=== PATIENT | male | born 1965 | race African-American/Black ===

== ENCOUNTER 2018-11-21 13:01 | Emergency (ER) | payer OTHER ==
[~2018-11-21] VITALS: Ht 180.3 cm; Wt 68.0 kg
[2018-11-21 13:08] VITALS: BP 107/71
--- NOTE | 2018-11-21 13:09 | NUR ---
BIBA C/O L KNEE PAIN 03/16 X1 DAY AND GENERALIZED WEAKNESS STARTING TODAY. PT STATES HE FELT LIKE HE "GOT THE CHILLS AND FELT LIGHTHEADED" WHILE AT THE BUS STOP THIS MORNING. PT REPORTS 3 EPISODES OF VOMITING THIS MORNING, CONSISTENT WITH THE FOOD HE ATE TODAY. FSBS 159 ON ARRIVAL. SKIN IS WARM/DRY; AAOX4 WITH UNSTEADY GAIT; LUNGS CLEAR BL; HR EVEN AND REGULAR; PT DENIES ANY FEVER, CP, SOB, OR COUGH AT THIS TIME; VSS; PATIENT POSITIONED FOR COMFORT; HOB ELEVATED; BEDRAILS UP X1; BED DOWN. ER MD MADE AWARE OF PT STATUS.
--- NOTE | 2018-11-21 13:13 | NUR ---
PROVIDED PT W URINAL/CUP FOR URINE SPECIMIN
--- NOTE | 2018-11-21 13:19 | NUR ---
ERMD AT BEDSIDE
[2018-11-21] MEDS ORDERED: KETOROLAC 60 MG/2 ML VIAL IM ONE (13:20)
[2018-11-21 13:56] VITALS: BP 113/79
--- NOTE | 2018-11-21 13:56 | NUR ---
Patient discharged with v/s stable. Written and verbal after care instructions given and explained. Patient alert, oriented and verbalized understanding of instructions. Ambulatory with steady gait. All questions addressed prior to discharge. ID band removed. Patient advised to follow up with PMD. Rx of Motrin, Zofran given. Patient educated on indication of medication including possible reaction and side effects. Opportunity to ask questions provided and answered.
== END 2018-11-21 13:56 | disposition home or self-care (01) ==
LOC: MED 13:01
DX: R11.2 Nausea with vomiting, unspecified (principal); M25.562 Pain in left knee; R06.02 Shortness of breath; F17.210 Nicotine dependence, cigarettes, uncomplicated
CPT/HCPCS: 82948; 96372; 99283; J1885